=== PATIENT | female | born 1985 | race Caucasian/White ===

== ENCOUNTER 2019-11-24 22:43 | Emergency (ER) | payer OTHER ==
[~2019-11-24] VITALS: Ht 157.5 cm; Wt 68.0 kg
--- NOTE | 2019-11-24 22:54 | NUR ---
PT TAKEN TO BED 1
[2019-11-24 22:59] VITALS: BP 108/46
--- NOTE | 2019-11-24 23:00 | NUR ---
PT 34 Y/O FEMALE BIB SELF FOR C/O BILATERAL FLANK PAIN 5/10 X 1 DAY. PT ALSO HAS C/O NAUSEA. DENIES V/D. PT STATES SHE HAS ABD DISCOMFORT WHEN URINATING. ABD IS FOFT, ROUND, AND NON-TENDER. PT AFEBRILE. DENIES COUGH. RESPIRATIONS ARE EVEN AND UNLABORED. SKIN IS WARM AND DRY TO TOUCH. MED HX: NONE ALLERGIES: NONE
[2019-11-24 23:10] LABS: APPEARANCE,URINE CLOUDY (CLEAR); BILIRUBIN,URINE NEGATIVE (NEGATIVE); BLOOD, URINE TRACE-I (NEGATIVE); COLOR,URINE YELLOW (YELLOW); LEUKOCYTE ESTERASE ,URINE NEGATIVE (NEGATIVE); NITRITE, URINE POSITIVE (NEGATIVE); UGLUCOSE NEGATIVE (NEGATIVE)
[2019-11-24 23:34] LABS: RBC,URINE 0-5 /HPF (0-5); WBC,URINE 0-5 /HPF (0-5)
[2019-11-24 23:59] VITALS: BP 108/46
--- NOTE | 2019-11-24 23:59 | NUR ---
Patient discharged with v/s stable. Written and verbal after care instructions given and explained. Patient verbalized understanding. Ambulatory with steady gait. All questions addressed prior to discharge. PT GIVEN RX KEFLEX. Advised to follow up with PMD.
== END 2019-11-24 23:59 | disposition home or self-care (01) ==
LOC: MED 22:43
DX: N39.0 Urinary tract infection, site not specified (principal)
CPT/HCPCS: 81001; 81002; 81025; 87086; 87186; 99283